=== PATIENT | female | born 1995 | race Caucasian/White ===

== ENCOUNTER 2016-12-09 12:47 | Emergency (ER) | payer OTHER ==
[~2016-12-09] VITALS: Ht 154.9 cm; Wt 60.0 kg
[~2016-12-09 12:47] MED LIST: ACET500C5 PO; CIPR500T4 PO; IBUP400T22 PO; NO MEDS
[2016-12-09 13:25] VITALS: Ht 154.9 cm; Wt 60.0 kg
[2016-12-09] MEDS ORDERED: IBUPROFEN 600 MG TAB PO ONE (14:00)
--- NOTE | 2016-12-09 14:17 | RADRPT ---
PROCEDURE: XR Left Foot. CLINICAL INDICATION: Trauma. Left foot pain. TECHNIQUE: Three views. Frontal, lateral, and oblique. COMPARISON: None. FINDINGS: There is no fracture or dislocation. The soft tissues are normal. Articular surfaces are intact. There is no lytic or blastic lesion. There is no radiopaque foreign body. IMPRESSION: 1. Normal images of the left foot. RPTAT: QQ .Eitan Antonio MD, MD Date Time Electronically viewed and signed by .Eitan Antonio MD, on 12/09/2016 14:17 .R/
[2016-12-09] MEDS ORDERED: IBUP-1542 PO (15:20)
--- NOTE | 2016-12-09 15:22 | ERD ---
ER Documentation Chief Complaint Date/Time DATE: 12/09/16 TIME: 15:21 Chief Complaint LEFT FOOT PAIN SINCE PLAYING SOCCER LAST NIGHT HPI This 21-year-old female presents with left foot pain after colliding playing soccer yesterday. She may have kicked another player's foot. She has pain in the dorsum across the left foot. She denies any ankle pain or knee pain, restricted range of motion or weakness. There is no bleeding or lacerations. ROS All systems reviewed and are negative except as per history of present illness. Medications Home Meds Active Scripts Ibuprofen* (Motrin*) 600 Mg Tab, 600 MG PO Q6, #15 TAB Prov:SOY MARTÍNEZ MD 12/09/16 Ibuprofen* (Motrin*) 400 Mg Tab, 400 MG PO Q6, #30 TAB Prov:ROCKY RENAE PA-C 09/11/15 Ciprofloxacin Hcl* (Ciprofloxacin Hcl*) 500 Mg Tablet, 500 MG PO DAILY for 5 Days, TAB Prov:CHRISTOPHE TRAVIS 09/22/14 Ibuprofen* (Motrin*) 400 Mg Tab, 400 MG PO Q6, #30 TAB Prov:CHRISTOPHE TRAVIS 09/22/14 Acetaminophen* (Tylophen*) 500 Mg Capsule, 1 CAP PO Q6H Y for PAIN AND OR ELEVATED TEMP, #20 CAP Prov:CHRISTOPHE TRAVIS 09/22/14 Reported Medications [No Meds] No Conflict Check 03/27/12 Allergies Allergies: Coded Allergies: No Known Allergy (Unverified , 03/27/12) PMhx/Soc History of Surgery: No Anesthesia Reaction: No Hx Neurological Disorder: No Hx Respiratory Disorders: No Hx Cardiac Disorders: No Hx Psychiatric Problems: No Hx Miscellaneous Medical Probl: No Hx Alcohol Use: No Hx Substance Use: No Hx Tobacco Use: No Physical Exam Vitals Vital Signs Date Time Temp Pulse Resp B/P Pulse Ox O2 Delivery O2 Flow Rate FiO2 12/09/16 13:25 98.4 68 18 118/64 100 Physical Exam Const: [] There are, [id number]. Head: Atraumatic Eyes: Normal Conjunctiva ENT: Normal External Ears, Nose and Mouth. Neck: Full range of motion..~ No meningismus. Resp: Clear to auscultation bilaterally Cardio: Regular rate and rhythm, no murmurs Abd: Soft, non tender, non distended. Normal bowel sounds Skin: No petechiae or rashes Back: No midline or flank tenderness Ext: No cyanosis, or edema tenderness across the left forefoot on the dorsum. No deformities, ecchymosis and no bleeding or lacerations. No appreciable ankle deformities or tenderness and no tenderness and no calf swelling or Homans sign. Neur: Awake and alert Psych: Normal Mood and Affect Results 24 hrs Current Medications Medications (Trade) Dose Ordered Sig/Demarco Route PRN Reason Start Time Stop Time Status Last Admin Dose Admin Ibuprofen (Motrin) 600 mg ONCE ONCE PO 12/09/16 14:00 12/09/16 14:01 DC Procedures/MDM X-ray left foot 3V Interpreted by me: Bones: No fracture Joints: No dislocation Foreign body: None impression-normal left foot x-ray Get ibuprofen for pain. Patient was presents with signs and symptoms of left foot contusion without evidence of fracture, dislocation. She was placed in left postop shoe and crutches with crutch training. Patient is vascularly intact after postop shoe. Patient was discharged home with prescription for ice , elevation, primary care follow-up and return precautions. Return for fevers, redness, new worsening symptoms or primary care doctor as directed. The patient was stable with no new complaints during the ER course. Clinically, there is no current evidence to suggest meningitis, sepsis, acute abdomen, pneumonia, acute coronary syndrome, pulmonary embolism, or any other emergent condition appearing to require further evaluation or hospitalization. The patient should certainly return for any new or worsening symptoms per the aftercare instructions. They should otherwise follow-up with her primary care doctor for reevaluation this week. Departure Diagnosis: Primary Impression: Injury of foot Encounter type: initial encounter Laterality: left Qualified Code: S99.922A - Injury of left foot, initial encounter Condition: Stable Patient Instructions: Contusion, Foot Additional Instructions: X-ray read as normal. Ice and elevate at home. Recheck with primary doctor plus orthopedist for pain next week. Recheck sooner for fevers, redness, new symptoms. SOY MARTÍNEZ MD Dec 09, 2016 15:22
[2016-12-09 15:55] VITALS: BP 117/61; PULSE 80; RESP 18; TEMP 98.9
== END 2016-12-09 15:57 | disposition home or self-care (01) ==
LOC: FTE 12:47
DX: S99.922A Unspecified injury of left foot, initial encounter (principal); W50.0XXA Accidental hit or strike by another person, initial encounter; Y92.9 Unspecified place or not applicable
CPT/HCPCS: 73630; Z7502; Z7610